=== PATIENT | male | born 1960 | race Caucasian/White ===

== ENCOUNTER 2016-03-13 08:23 | Emergency (ER) | payer BC ==
[~2016-03-13] VITALS: Ht 180.3 cm; Wt 65.9 kg
[2016-03-13 08:27] VITALS: TEMP 98.3
[2016-03-13] MEDS ORDERED: NORCO 325 MG-51 TAB PO (10:10)
[2016-03-13 10:33] VITALS: BP 145/78; PULSE 72
== END 2016-03-13 10:36 | disposition home or self-care (01) ==
LOC: COL.ER 08:23
DX: S70.02XA Contusion of left hip, initial encounter (principal); W10.8XXA Fall (on) (from) other stairs and steps, initial encounter; Y92.008 Other place in unspecified non-institutional (private) residence as the place of occurrence of the external cause; Z96.642 Presence of left artificial hip joint
CPT/HCPCS: J1170; J2405

== ENCOUNTER 2016-03-20 10:13 | Emergency (ER) | payer BC ==
[~2016-03-20] VITALS: Ht 180.3 cm; Wt 65.9 kg
[~2016-03-20 10:13] MED LIST: NORCO 325 MG-51 TAB PO
[2016-03-20 10:20] VITALS: BP 157/91; PULSE 82; TEMP 97.5
[2016-03-20] MEDS ORDERED: NORCO 325 MG-51 TAB PO (11:46)
== END 2016-03-20 12:39 | disposition home or self-care (01) ==
LOC: COL.ER 10:13
DX: T84.84XA Pain due to internal orthopedic prosthetic devices, implants and grafts, initial encounter (principal); M25.552 Pain in left hip; G89.29 Other chronic pain